=== PATIENT | male | born 1975 | race American Indian/Alaskan Native ===

== ENCOUNTER 2019-03-17 10:57 | Emergency (ER) | payer SELFPAY ==
--- NOTE | 2019-03-17 11:00 | Emergency Department Report ---
Stated Complaint: LFT FINGER INJURY/PAIN Time Seen by Provider: 03/17/19 10:59 - HPI History of Present Illness: PARONYCHIA FINGER RX NONE MSE COMPLETED MSE screening note: Focused history and physical exam performed. Due to findings the following was ordered: ED Disposition for MSE Condition: Stable
[2019-03-17 11:07] VITALS: BP 121/88
--- NOTE | 2019-03-17 11:23 | Emergency Department Report ---
Abscess Boil HPI - HPI Chief Complaint: Extremity Injury, Upper Stated Complaint: LFT FINGER INJURY/PAIN Time Seen by Provider: 03/17/19 10:59 Duration: 1 Day Location: Upper Extremity Severity: Mild History: Yes Pain, Yes Purulent Drainage, No Fever, No Numbness, No Foreign Body, No Previous History, No Insect Bite Home Medications: Previous Rx's Medication Instructions Recorded Last Taken Type Amoxicillin [Trimox CAP] 500 mg PO BID #20 capsule 03/17/19 Unknown Rx Naproxen [Naprosyn] 500 mg PO BID PRN #20 tablet 03/17/19 Unknown Rx Allergies/Adverse Reactions: Allergies Allergy/AdvReac Type Severity Reaction Status Date / Time No Known Allergies Allergy Verified 03/17/19 11:00 ED Review of Systems ROS: Stated complaint: LFT FINGER INJURY/PAIN Other details as noted in HPI Comment: All other systems reviewed and negative ED Past Medical Hx - Past Medical History Previous Medical History?: No - Surgical History Past Surgical History?: No - Social History Smoking Status: Current Every Day Smoker Substance Use Type: None - Medications Home Medications: Home Medications Medication Instructions Recorded Confirmed Last Taken Type Amoxicillin [Trimox CAP] 500 mg PO BID #20 capsule 03/17/19 Unknown Rx Naproxen [Naprosyn] 500 mg PO BID PRN #20 tablet 03/17/19 Unknown Rx ED Abscess Boil Physical Exam - Exam General: Vital signs noted. No distress. Alert and acting appropriately. Size: 1 cm Exam: Yes Tenderness, Yes Fluctuance, Yes Normal Neurologic Exam, Yes Normal C irculation, No Surrounding Cellulites/Erythema, No Lymphangitis, No Crepitation, No Heart Murmur I & D Note - I & D Note I & D Note: paronychia opened without difficulty. pt tolerated procedure well ED Course Vital Signs 03/17/19 11:05 Temperature 98.1 F Pulse Rate 99 H Respiratory 18 Rate Blood Pressure 121/88 O2 Sat by Pulse 99 Oximetry Critical care attestation.: If time is entered above; I have spent that time in minutes in the direct care of this critically ill patient, excluding procedure time. ED Medical Decision Making - Medical Decision Making Vital Signs 03/17/19 11:05 Temperature 98.1 F Pulse Rate 99 H Respiratory 18 Rate Blood Pressure 121/88 O2 Sat by Pulse 99 Oximetry dc home with antibiotics VSS MSE completed ED Disposition Clinical Impression: Paronychia Disposition: DC-01 TO HOME OR SELFCARE Is pt being admited?: No Does the pt Need Aspirin: No Condition: Stable Instructions: Paronychia (ED) Additional Instructions: DIET TOLERATED MEDS ORDERED TODAY IN ER FOLLOW INSTRUCTIONS ON THE BOTTLE FOLLOW UP PCP WITHIN 48 HOURS TO ENSURE YOU ARE GETTING BETTER ACTIVITY TOLERATED MOTRIN OR TYLENOL FOR PAIN OR FEVER RETURN TO THE ER FOR WORSENING SYMPTOMS NOT RELIEVED BY YOUR MEDICATIONS. Referrals: SILVER GOLDSMITH MD [Primary Care Provider] - 3-5 Days Time of Disposition: 11:31
== END 2019-03-17 11:43 | disposition home or self-care (01) ==
LOC: ED 10:57
DX: L03.012 Cellulitis of left finger (principal); F17.200 Nicotine dependence, unspecified, uncomplicated
CPT/HCPCS: 99282